=== PATIENT | female | born 1985 | race Two or more races ===

== ENCOUNTER 2018-03-11 00:29 | Inpatient (IN) | payer OTHER ==
[~2018-03-11] VITALS: Ht 167.6 cm; Wt 83.5 kg
[2018-03-11] MEDS ORDERED: OBSTETRIX EC C1 EACH PO (01:30)
== END 2018-03-13 11:32 | disposition home or self-care (01) | DRG 807 ==
LOC: LDR 00:29 → OB/GYN 15:09
PROC: 10E0XZZ Delivery of Products of Conception, External Approach (ICD-10-PCS; principal; 2018-03-11)
PROC: 3E033VJ Introduction of Other Hormone into Peripheral Vein, Percutaneous Approach (ICD-10-PCS; 2018-03-11)
PROC: 4A1HXCZ Monitoring of Products of Conception, Cardiac Rate, External Approach (ICD-10-PCS; 2018-03-11)
PROC: 4A033R1 Measurement of Arterial Saturation, Peripheral, Percutaneous Approach (ICD-10-PCS; 2018-03-11)
DX: O80 Encounter for full-term uncomplicated delivery (principal); Z37.0 Single live birth; Z3A.38 38 weeks gestation of pregnancy